=== PATIENT | female | born 1990 | race Caucasian/White ===

== ENCOUNTER 2017-12-07 03:34 | Emergency (ER) | payer MEDICAID, SELFPAY ==
[2017-12-07] MEDS ORDERED: AMOXicillin 250 MG CAP ONE (03:51)
== END 2017-12-07 04:00 | disposition home or self-care (01) ==
LOC: BURERS 03:34
DX: K02.9 Dental caries, unspecified (principal); F17.210 Nicotine dependence, cigarettes, uncomplicated
CPT/HCPCS: 99282

== ENCOUNTER 2018-06-02 14:30 | Emergency (ER) | payer OTHER | END 2018-06-02 15:16 | disposition home or self-care (01) | LOC: BURERS 14:30 | DX: L30.3 Infective dermatitis (principal); F17.210 Nicotine dependence, cigarettes, uncomplicated | CPT/HCPCS: 99282 ==

== ENCOUNTER 2019-06-02 18:10 | Emergency (ER) | payer OTHER ==
[2019-06-02] MEDS ORDERED: Ibuprofen 800 MG TAB ONE (18:32)
== END 2019-06-02 18:36 | disposition home or self-care (01) ==
LOC: BURERS 18:10
DX: K02.9 Dental caries, unspecified (principal); F17.210 Nicotine dependence, cigarettes, uncomplicated
CPT/HCPCS: 99406

== ENCOUNTER 2019-07-22 05:51 | Emergency (ER) | payer OTHER | END 2019-07-22 06:23 | disposition home or self-care (01) | LOC: BURERS 05:51 | DX: M25.562 Pain in left knee (principal); K13.79 Other lesions of oral mucosa; F17.210 Nicotine dependence, cigarettes, uncomplicated | CPT/HCPCS: 99281 ==

== ENCOUNTER 2019-08-06 10:13 | Emergency (ER) | payer OTHER | END 2019-08-06 10:43 | disposition home or self-care (01) | LOC: BURERS 10:13 | DX: K04.7 Periapical abscess without sinus (principal); L03.211 Cellulitis of face; F17.210 Nicotine dependence, cigarettes, uncomplicated | CPT/HCPCS: 99282 ==